=== PATIENT | female | born 1980 | race Caucasian/White ===

== ENCOUNTER 2017-02-22 10:22 | Emergency (ER) | payer OTHER ==
--- NOTE | ~2017-02-22 | EKG ---
PATIENT: ENE DESAI UNIT #: [id number] Ventricular Rate: 72 BPM Atrial Rate: 72 BPM P-R Interval: 128 ms QRS Duration: 70 ms Q-T Interval: 402 ms QTC Calculation(Bezet): 440 ms P [place]: 30 degrees Calculated R [place]: 57 degrees Calculated T [place]: 28 degrees Diagnosis Line: Normal sinus rhythm Diagnosis Line: Normal ECG Diagnosis Line: When compared with ECG of 23-FEB-2011 19:54, Diagnosis Line: Premature ventricular complexes are no longer Diagnosis Line: Present Diagnosis Line: Confirmed by VELIA CHIRINOS MD ([id number]) on Diagnosis Line: 02/24/2017 7:15:04 AM INTERPRETING MD: TARAN ROLLINS
--- NOTE | ~2017-02-22 | CR72 ---
[facility]. [facility] A Service of [facility] & [facility] RADIOLOGY TEXT RESULTS PATIENT: ENE DESAI LOCATION: SED : 78 UNIT #: [id number] AGE: [address]: Navid Vigil MD SEX: F ORDER DR: [id number] [place] [id number] MR#: [id number] Acc #: [id number] NAME: ENE DESAI. : 1980 SEX: F STUDY DATE/TIME: 02/22/2017 12:24 UNIT: SED ROOM: STUDY DESCRIPTION: CR Chest Single View Portable Attending Physician: Navid Vigil M.D. Ordering Physician: Navid Vigil M.D. Primary Care Physician: Shahriar Leon Aprn MEDICAL IMAGING REPORT This report is preliminary unless electronic signature is present. EXAM Portable chest 02/22/2017 HISTORY 36-year-old female intermittent chest pain. Pain 6:30 a.m. today. Patient is a smoker. Large body habitus. COMPARISON Portable chest 02/23/2011. FINDINGS AP upright portable chest demonstrates morbid obesity. Cardiac enlargement is present. Lungs are expanded and clear. IMPRESSION Limited somewhat by morbid obesity. Cardiomegaly present. No acute chest finding. Dictated by... Emil Saldana M.D. THIS IS AN ELECTRONICALLY VERIFIED REPORT Emil Saldana M.D. at 02/22/2017 3:26 PM SILKE/kristina TD: 02/22/2017 14:22 JOB #: [id number] MEDICAL IMAGING REPORT Page 1 of 1
[~2017-02-22 10:22] MED LIST: AMOXICILLIN500 M1 PO; ATARAX PO; BACTRIM DS TABL1 TAB PO; BENZONATATE PO; CHOLESTEROL MED; DOXYCYCLINE HY100 M1 PO; HYCODAN60 ML 5MG/ PO; ILOTYCIN1 GM OP; KEFLEX PO; LACRI-LUBE NP OI1 UD OP; LEXAPRO PO; NAPHCON-A EYE D15 M1 OP; NO MEDICATIONS; PHENERGAN PO; PREDNISONE50 MG PO; ROBAXIN500 MG PO; VIBRAMYCIN100 M1 PO; VICODIN 5/500 T1 TAB PO; VOLTAREN75 MG PO
[2017-02-22 11:01] LABS: BASOPHIL% 0.7 % (0-2.5); EOSINOPHIL# 0.1 X10e3 (0-0.7); EOSINOPHIL% 1.9 % (0.0-7.0); HEMATOCRIT 40.2 % (35.0-45.0); HEMOGLOBIN 13.9 gm/dL (12.0-16.0); LYMPHOCYTE# 1.7 X10e3 (1.0-3.5); LYMPHOCYTE% 23.9 % (17.0-45.0); MEAN CELL VOLUME 86.7 FL (83-96); MEAN CORPUSCULAR HGB CONC 34.6 g/dL (30-36); MEAN PLATELET VOLUME 7.8 FL (6.5-11.5); MONOCYTE# 0.3 X10e3 (0-1.0); MONOCYTE% 4.4 % (3.0-12.0); NEUTROPHIL# 5.1 X10e3 (1.5-7.1); NEUTROPHIL% 69.1 % (40-75); PLATELET COUNT 190 X10e3 (140-420); RED BLOOD COUNT 4.64 X10e (3.90-5.30); RED CELL DISTRIBUTION WIDTH 13.5 % (11.0-15.5); WHITE BLOOD COUNT 7.3 X10e3 (4.0-10.5)
[2017-02-22 11:09] LABS: DIFF IND NO
[2017-02-22 11:13] LABS: PROTHROMBIN TIME (PATIENT) 10.8 SECONDS (9.5-12.4)
[2017-02-22 11:21] LABS: ALBUMIN SERUM 4.1 g/dL (3.5-5.0); BILIRUBIN, DIRECT 0.1 mg/dL (0.0-0.2); BILIRUBIN,INDIRECT 0.7 mg/dL (0.0-0.9); BILIRUBIN,TOTAL 0.8 mg/dL (0.2-2.0); BUN/CREATININE RATIO 21.42; CALCIUM SERUM 8.7 mg/dL (8.4-10.2); CREATININE SERUM 0.7 mg/dL (0.6-1.4); GLOM FILT RATE Estimated 110.7 mL/min (>60); PARTIAL THROMBOPLASTIN TIME 30.2 SECONDS (25.6-38.1); POTASSIUM 4.2 mmol/L (3.5-5.1); PROTEIN TOTAL SERUM 7.4 g/dL (6.0-8.3)
[2017-02-22 11:39] LABS: POC - CKMB 1.5 ng/mL (0.0-7.9); POC - TROPONIN <0.05 ng/mL (<=0.05)
[2017-02-22 12:42] LABS: POC - CKMB 1.6 ng/mL (0.0-7.9); POC - TROPONIN <0.05 ng/mL (<=0.05)
== END 2017-02-22 13:24 | disposition home or self-care (01) ==
LOC: SED 10:22
PROVIDERS: Emergency Medicine
DX: R07.9 Chest pain, unspecified (principal); F17.200 Nicotine dependence, unspecified, uncomplicated
CPT/HCPCS: 36415; 71010; 80048; 80076; 82553; 84484; 85025; 85610; 85730; 93005; 96374; 99285; J1885